=== PATIENT | male | born 1965 | race Two or more races ===

== ENCOUNTER 2016-05-19 16:44 | Emergency (ER) | payer SELFPAY ==
[2016-05-19 16:52] VITALS: BMI 32.5
[2016-05-19] MEDS ORDERED: NS 1000 ML 1,000 ML ONE (17:00)
[2016-05-19] MEDS ORDERED: NS 1000 ML 1,000 ML IV ONE (17:18)
[2016-05-19 17:27] LABS: BASOPHILS # (AUTO) 0.1 X10^3/uL (0.0-0.1); BASOPHILS % (AUTO) 1.2 % (0.2-1.0); EOSINOPHILS % (AUTO) 0.2 % (0.9-2.9); HEMATOCRIT 46.3 % (42.0-54.0); HEMOGLOBIN 15.9 g/dL (13.5-18.0); LYMPHOCYTES # (AUTO) 1.2 X10^3/uL (1.3-2.9); LYMPHOCYTES % (AUTO) 12.4 % (21.0-51.0); MEAN CORPUSCULAR HEMOGLOBIN 29.7 pg (27.0-34.0); MEAN CORPUSCULAR HGB CONC 34.4 g/dL (33.0-35.0); MEAN CORPUSCULAR VOLUME 86.3 fL (80.0-100.0); MEAN PLATELET VOLUME 8.9 fL (7.4-11.0); MONOCYTES # (AUTO) 1.2 x10^3/uL (0.3-0.8); MONOCYTES % (AUTO) 12.3 % (0.0-13.0); NEUTROPHILS # (AUTO) 7.1 x10^3/uL (2.2-4.8); NEUTROPHILS % (AUTO) 73.9 % (42.0-75.0); PLATELET COUNT 150 X10^3/uL (150.0-450.0); RED BLOOD COUNT 5.36 X10^6/uL (4.7-6.0); RED CELL DISTRIBUTION WIDTH 14.4 % (11.6-16.5); WHITE BLOOD COUNT 9.6 X10^3/uL (3.6-10.0)
[2016-05-19 17:40] LABS: ALANINE AMINOTRANSFERASE 106 Units/L (12-78); ALKALINE PHOSPHATASE 106 Units/L (46-116); ASPARTATE AMINO TRANSFERASE 59 Units/L (15-37); BLOOD UREA NITROGEN 13 mg/dL (7-18); CALCIUM 8.9 mg/dL (8.5-10.1); CARBON DIOXIDE 26.1 mmol/L (21-32); CHLORIDE 101 mmol/L (98-107); COR NA(FOR HYPERGLY) 140 mmol/L (136-145); CREATININE 1.63 mg/dL (0.70-1.30); GLUCOSE 126 mg/dL (65-99); SODIUM 139 mmol/L (136-145); eGFR BLACK RACES 58 (>60); eGFR NON BLACK RACES 48 (>60)
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
--- NOTE | 2016-05-19 17:53 | RAD ---
HISTORY: Congestion cough. Dyspnea. PA and lateral views of the chest. Comparison: None. Findings: The trachea is midline. The cardiac silhouette is unremarkable. There are increased perihilar inte rstitial opacities seen, compatible with bronchiolitis/bronchitis. There is also a developing infilt rate /pneumonia in the left lung base on the AP image. The remaining lungs are otherwise clear witho ut focal infiltrate or effusion. The bony thorax is unremarkable. IMPRESSION: Findings of bronchitis/bronchiolitis with developing LLL pneumonia. Followup to complete resolution is recommended following treatment. Reported By:
[2016-05-19] MEDS ORDERED: ROCEPHIN VIAL 1 GM 1 GM in NS 50 ML IV + SPIKE MINIBAG* 50 ML IV SCH (18:00)
[2016-05-19 18:03] VITALS: BP 121/73
[2016-05-19] MEDS ORDERED: ROCEPHIN 1 GM IV PREMIX * OUT OF STOCK 50 ML IV ONE (18:06)
== END 2016-05-19 18:36 | disposition home or self-care (01) ==
LOC: ER 17:01
DX: J11.1 Influenza due to unidentified influenza virus with other respiratory manifestations (principal)
CPT/HCPCS: 36415; 71020; 80053; 85025; 86140; 87040; 87070; 87205; 96365; 96374; 99283; A4222; J0696

== ENCOUNTER 2016-08-06 19:41 | Emergency (ER) | payer SELFPAY ==
[2016-08-06 19:59] VITALS: BP 149/98; BMI 32.4
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
[2016-08-06] MEDS ORDERED: NORCO 7.5/325 MG TAB PO ONE (20:18)
[2016-08-06] MEDS ORDERED: NORCO 7.5/325 MG TAB ONE (20:25)
[2016-08-06] MEDS: SILVADENE TOP SCH ×2 (21:05→21:22)
[2016-08-06] MEDS ORDERED: SILVADENE ONE (21:18)
[2016-08-06] MEDS ORDERED: SILVADENE TOP NR (22:00)
== END 2016-08-06 21:27 | disposition home or self-care (01) | DRG 935 ==
LOC: ER 19:41
DX: T22.242A Burn of second degree of left axilla, initial encounter (principal); T22.241A Burn of second degree of right axilla, initial encounter; Y92.89 Other specified places as the place of occurrence of the external cause; X58.XXXA Exposure to other specified factors, initial encounter
CPT/HCPCS: 99282